=== PATIENT | male | born 1955 | race Caucasian/White ===

== ENCOUNTER 2021-02-22 19:39 | Inpatient (IN) | payer MEDICARE, OTHER ==
[~2021-02-22] VITALS: Ht 185.4 cm; Wt 90.7 kg
[~2021-02-22 19:39] MED LIST: ADVAIR 250-501 EACH INH; AMBIEN5 MG PO; ARICEPT5 MG PO; BENZTROPINE ME0.5 MG PO; CARVEDILOL3.125 MG PO; CLONAZEPAM1 MG PO; DEPAKOTE ER250 MG PO; DOXEPIN HCL150 MG PO; ENALAPRIL MALEA20 MG PO; FLOMAX0.4 MG PO; LASIX40 MG PO; LEVOTHYROXINE175 MCG PO; LITHIUM CARBON300 MG PO; LORATADINE10 MG PO; MOTRIN200 MG PO; NICOTINE PATCH1 EAC1 TOP; OLANZAPINE10 MG PO; PRAVASTATIN SOD40 MG PO; PRILOSEC40 MG PO; PROAIR HFA INH8.5 GM INH; QUETIAPINE FUMA25 MG PO; SPIRIVA18 MCG INH; TRICOR145 MG PO
[2021-02-22] MEDS ORDERED: SODIUM CHLORIDE 0.9% 1000ML 1,000 ML IV STA ×2 (19:52→20:41)
[2021-02-22] MEDS ORDERED: Vancomycin IV 1 GM in SODIUM CHLORIDE 0.9% 250ML 250 ML IV STA (19:52)
[2021-02-22] MEDS ORDERED: PIPERACILLIN/TAZOBACTAM 3.375 GM in SODIUM CHLORIDE 0.9% 50ML 50 ML IV STA (19:52)
[2021-02-22] MEDS ORDERED: ACETAMINOPHEN 325 MG TAB ONE (19:58)
[2021-02-22] MEDS ORDERED: SODIUM CHLORIDE 0.9% 1000ML 1,000 ML ONE (19:59)
[2021-02-22] MEDS ORDERED: ACETAMINOPHEN 325 MG TAB PO ONE (20:00)
[2021-02-22 20:01] LABS: BASOPHILS # (AUTO) 0.1 (0.0-0.1); BASOPHILS % 0.3 % (0.0-1.0); EOSINOPHILS # (AUTO) 0.2 (0.0-0.4); EOSINOPHILS % 1.1 % (0.0-6.0); HEMATOCRIT 45.1 % (38.2-49.6); HEMOGLOBIN 14.5 g/dL (14.0-18.0); LYMPHOCYTES # (AUTO) 2.5 (1.0-3.2); LYMPHOCYTES % 13.7 % (18.0-39.1); MEAN CORPUSCULAR HEMOGLOBIN 33.9 pg (28-32); MEAN CORPUSCULAR HGB CONC 32.2 g/dL (31-35); MEAN CORPUSCULAR VOLUME 105.4 fL (81-99); MONOCYTES # (AUTO) 1.5 (0.2-0.8); MONOCYTES % 8.2 % (4.4-11.3); NEUTROPHILS # (AUTO) 14.1 (2.1-6.9); NEUTROPHILS % 76.2 % (38.7-80.0); PLATELET COUNT 183 x10e3/uL (140-360); RED BLOOD COUNT 4.28 x10e6/uL (4.3-5.7); RED CELL DISTRIBUTION WIDTH 13.8 % (11.7-14.4)
[2021-02-22 20:21] LABS: ALBUMIN 3.7 g/dL (3.5-5.0); ALBUMIN/GLOBULIN RATIO 1.2 (0.8-2.0); ANION GAP 16.4 mmol/L (8-16); CALCIUM 9.1 mg/dL (8.4-10.2); CREATININE, SERUM 1.15 mg/dL (0.72-1.25); POTASSIUM 4.4 mmol/L (3.5-5.1)
[2021-02-22] MEDS ORDERED: ALBUTEROL/IPRATROPIUM 3 ML NEB NEB ONE (21:00)
[2021-02-22 21:03] LABS: CLARITY,URINE CLEAR (CLEAR); COLOR,URINE YELLOW (YELLOW); KETONES,URINE NEGATIVE (NEGATIVE); LEUKOCYTE ESTERASE ,URINE NEGATIVE (NEGATIVE); NITRITE,URINE NEGATIVE (NEGATIVE); PROTEIN,URINE DIPSTICK NEGATIVE (NEGATIVE); URINE UROBILINOGEN 0.2 mg/dL (0.2 - 1)
[2021-02-22 21:08] LABS: BACTERIA,URINE RARE /HPF; EPITHELIAL CELLS,URINE FEW /LPF; MUCUS,URINE FEW (RARE); RBC,URINE 0-5 /HPF (0-5); WBC,URINE (MAN) 0-5 /HPF (0-5)
[2021-02-22 21:20] LABS: PLATELET ESTIMATE ADEQUATE; PLATELET MORPHOLOGY COMMENT NORMAL; STOMATOCYTES SLIGHT
[2021-02-22] MEDS ORDERED: SODIUM CHLORIDE 0.9% 1000ML 1,000 ML IV SCH (21:30)
[2021-02-22 21:51] VITALS: BP 104/87
[2021-02-22] MEDS ORDERED: HYDROCODON-ACE1 EAC8 (23:46)
[2021-02-23] VITALS (8 sets, daily range): BP systolic 101–130; BP diastolic 57–91
[2021-02-23] MEDS: HYDROCODONE/APAP 5MG-325MG TAB PO PRN ×4 (00:45→22:02)
[2021-02-23] MEDS: ZOLPIDEM TARTRATE 5 MG TAB PO PRN ×2 (00:45→22:00)
[2021-02-23] MEDS: SODIUM CHLORIDE 0.9% 1000ML 1,000 ML IV SCH ×3 (01:49→13:30)
[2021-02-23] MEDS: LEVALBUTEROL HCL SOLN NEBU 1.25 MG/3 ML NEB INH SCH ×2 (02:15→07:00)
[2021-02-23] MEDS ORDERED: GUAIFENESIN/DEXTROMETHORPHAN LIQD 5 ML UDC NG PRN (06:45)
[2021-02-23] MEDS ORDERED: ALBUTEROL/IPRATROPIUM 3 ML NEB NEB PRN (07:00)
[2021-02-23 07:19] LABS: BASOPHILS % 0.2 % (0.0-1.0); HEMATOCRIT 40.5 % (38.2-49.6); HEMOGLOBIN 13.1 g/dL (14.0-18.0); LYMPHOCYTES # (AUTO) 0.6 (1.0-3.2); LYMPHOCYTES % 5.4 % (18.0-39.1); MEAN CORPUSCULAR HEMOGLOBIN 33.6 pg (28-32); MEAN CORPUSCULAR HGB CONC 32.3 g/dL (31-35); MEAN CORPUSCULAR VOLUME 103.8 fL (81-99); MONOCYTES # (AUTO) 0.3 (0.2-0.8); MONOCYTES % 2.2 % (4.4-11.3); NEUTROPHILS # (AUTO) 10.4 (2.1-6.9); NEUTROPHILS % 91.8 % (38.7-80.0); PLATELET COUNT 159 x10e3/uL (140-360); RED CELL DISTRIBUTION WIDTH 13.6 % (11.7-14.4)
[2021-02-23 07:38] LABS: CALCIUM 8.4 mg/dL (8.4-10.2); CREATININE, SERUM 0.96 mg/dL (0.72-1.25)
[2021-02-23 07:43] LABS: CREATINE KINASE MB 5.4 ng/mL (0-5.0)
[2021-02-23 08:08] LABS: ALBUMIN 3.1 g/dL (3.5-5.0); BILIRUBIN,DIRECT 0.2 mg/dL (0.0-0.5)
[2021-02-23] MEDS: CARVEDILOL 3.125 MG TAB PO SCH ×2 (08:11→15:55)
[2021-02-23] MEDS: DIVALPROEX SODIUM 250 MG TAB...DR PO SCH ×2 (08:12→15:55)
[2021-02-23] MEDS: CLONAZEPAM 1 MG TAB PO SCH ×2 (08:12→17:51)
[2021-02-23] MEDS: PIPERACILLIN/TAZOBACTAM 3.375 GM in SODIUM CHLORIDE 0.9% 50ML 50 ML IV SCH ×3 (08:12→20:00)
[2021-02-23] MEDS: PANTOPRAZOLE SOD 40 MG TABEC PO SCH (08:13)
[2021-02-23] MEDS: BENZONATATE 100 MG CAP PO SCH ×3 (08:13→21:39)
[2021-02-23] MEDS ORDERED: METHYLPREDNISOLONE SOD SUCC 40 MG/ML VIAL 1ML IV SCH (09:30)
[2021-02-23] MEDS: TAMSULOSIN HCL 0.4 MG CAP PO SCH (09:31)
[2021-02-23] MEDS: LEVOTHYROXINE SODIUM 75 MCG TAB PO SCH (09:31)
[2021-02-23] MEDS: LORATADINE 10 MG TAB PO SCH (09:31)
[2021-02-23] MEDS: LEVOTHYROXINE SODIUM 100 MCG TAB PO SCH (09:31)
[2021-02-23] MEDS: FENOFIBRATE 145 MG TAB PO SCH (09:31)
[2021-02-23] MEDS ORDERED: AZITHROMYCIN 250 MG TAB PO STA (10:03)
[2021-02-23] MEDS: LITHIUM CARBONATE ER 300 MG TAB PO SCH ×2 (11:00→15:55)
[2021-02-23] MEDS: ALBUTEROL/IPRATROPIUM 3 ML NEB NEB SCH ×4 (11:28→22:05)
[2021-02-23] MEDS: NICOTINE 7 MG PATCH TOP SCH (11:32)
[2021-02-23] MEDS: DOXYCYCLINE HYCLATE TABLET 100 MG TAB PO SCH ×2 (11:36→21:39)
[2021-02-23] MEDS ORDERED: QUETIAPINE FUMARATE 25 MG TAB PO SCH (21:00)
[2021-02-23] MEDS ORDERED: SIMVASTATIN 20 MG TAB PO SCH (21:00)
[2021-02-23] MEDS: METHYLPREDNISOLONE SOD SUCC 40 MG/ML VIAL 1ML IV SCH (21:39)
[2021-02-23] MEDS: HEPARIN SOD (PORCINE) 5,000 UNIT/ML VIAL SC SCH (21:40)
[2021-02-24] VITALS: BP 118/69
[2021-02-24] MEDS: ALBUTEROL/IPRATROPIUM 3 ML NEB NEB SCH ×5 (01:45→18:50)
[2021-02-24] MEDS: SODIUM CHLORIDE 0.9% 1000ML 1,000 ML IV SCH ×2 (01:47→15:00)
[2021-02-24] MEDS: PIPERACILLIN/TAZOBACTAM 3.375 GM in SODIUM CHLORIDE 0.9% 50ML 50 ML IV SCH ×3 (02:00→12:27)
[2021-02-24 04:00] VITALS: BP 129/76
[2021-02-24] MEDS: HYDROCODONE/APAP 5MG-325MG TAB PO PRN ×3 (05:04→17:20)
[2021-02-24 05:47] LABS: CHOL/HDL RATIO 3.1 (3.9-4.7)
[2021-02-24] MEDS: LEVOTHYROXINE SODIUM 100 MCG TAB PO SCH (06:08)
[2021-02-24] MEDS: LEVOTHYROXINE SODIUM 75 MCG TAB PO SCH (06:08)
[2021-02-24 06:25] LABS: FREE THYROXINE INDEX 2.1706 (1.4-3.8); THYROID STIMULATING HORMONE 0.073 uIU/mL (0.350-4.940)
[2021-02-24 07:54] VITALS: BP 132/90
[2021-02-24 08:10] VITALS: BP 132/90
[2021-02-24] MEDS: BENZONATATE 100 MG CAP PO SCH ×2 (08:16→16:15)
[2021-02-24] MEDS: TAMSULOSIN HCL 0.4 MG CAP PO SCH (08:16)
[2021-02-24] MEDS: METHYLPREDNISOLONE SOD SUCC 40 MG/ML VIAL 1ML IV SCH (08:16)
[2021-02-24] MEDS: NICOTINE 7 MG PATCH TOP SCH (08:16)
[2021-02-24] MEDS: CLONAZEPAM 1 MG TAB PO SCH ×2 (08:16→16:15)
[2021-02-24] MEDS: FENOFIBRATE 145 MG TAB PO SCH (08:16)
[2021-02-24] MEDS: DOXYCYCLINE HYCLATE TABLET 100 MG TAB PO SCH (08:16)
[2021-02-24] MEDS: LITHIUM CARBONATE ER 300 MG TAB PO SCH ×2 (08:16→16:15)
[2021-02-24] MEDS: DIVALPROEX SODIUM 250 MG TAB...DR PO SCH ×2 (08:16→16:15)
[2021-02-24] MEDS: PANTOPRAZOLE SOD 40 MG TABEC PO SCH (08:16)
[2021-02-24] MEDS: LORATADINE 10 MG TAB PO SCH (08:16)
[2021-02-24] MEDS: CARVEDILOL 3.125 MG TAB PO SCH ×2 (08:17→16:15)
[2021-02-24] MEDS: HEPARIN SOD (PORCINE) 5,000 UNIT/ML VIAL SC SCH (08:17)
[2021-02-24] MEDS ORDERED: AZITHROMYCIN 250 MG TAB PO SCH (09:00)
[2021-02-24 10:39] LABS: BASOPHILS % 0.1 % (0.0-1.0); HEMATOCRIT 39.5 % (38.2-49.6); HEMOGLOBIN 12.3 g/dL (14.0-18.0); LYMPHOCYTES # (AUTO) 0.6 (1.0-3.2); LYMPHOCYTES % 8.2 % (18.0-39.1); MEAN CORPUSCULAR HEMOGLOBIN 33.4 pg (28-32); MEAN CORPUSCULAR HGB CONC 31.1 g/dL (31-35); MEAN CORPUSCULAR VOLUME 107.3 fL (81-99); MONOCYTES # (AUTO) 0.3 (0.2-0.8); MONOCYTES % 3.3 % (4.4-11.3); NEUTROPHILS # (AUTO) 6.6 (2.1-6.9); NEUTROPHILS % 87.9 % (38.7-80.0); PLATELET COUNT 168 x10e3/uL (140-360); RED BLOOD COUNT 3.68 x10e6/uL (4.3-5.7); RED CELL DISTRIBUTION WIDTH 13.5 % (11.7-14.4)
[2021-02-24 10:56] LABS: ANION GAP 15.5 mmol/L (8-16); CALCIUM 8.7 mg/dL (8.4-10.2); CREATININE, SERUM 1.05 mg/dL (0.72-1.25); POTASSIUM 4.5 mmol/L (3.5-5.1)
[2021-02-24 12:18] VITALS: BP 127/76
[2021-02-24] MEDS ORDERED: NICODERM CQ1 EACH TOP (14:05)
[2021-02-24] MEDS ORDERED: LORATADINE10 MG PO (14:05)
[2021-02-24] MEDS ORDERED: PREDNISONE20 MG PO (14:05)
[2021-02-24] MEDS ORDERED: ROBITUSSIN COU118 M4 PO (14:05)
[2021-02-24] MEDS ORDERED: DOXYCYCLINE HY100 MG PO (14:05)
[2021-02-24] MEDS ORDERED: TESSALON PERLE100 MG PO (14:05)
[2021-02-24] MEDS ORDERED: CEFUROXIME250 MG PO (14:08)
[2021-02-24 15:40] VITALS: BP 135/94
== END 2021-02-24 20:05 | DRG 871 ==
LOC: ER 19:42 → ERHOLD 21:18 → ER 22:03 → MED/SURG2 23:25
PROVIDERS: ADMIT Internal Medicine; ATTEND Internal Medicine
DX: A41.9 Sepsis, unspecified organism (principal); J96.21 Acute and chronic respiratory failure with hypoxia; J18.9 Pneumonia, unspecified organism; J44.0 Chronic obstructive pulmonary disease with (acute) lower respiratory infection; J44.1 Chronic obstructive pulmonary disease with (acute) exacerbation; N40.0 Benign prostatic hyperplasia without lower urinary tract symptoms; F17.200 Nicotine dependence, unspecified, uncomplicated; E03.9 Hypothyroidism, unspecified; Z20.822 Contact with and (suspected) exposure to COVID-19; Z86.74 Personal history of sudden cardiac arrest; F31.9 Bipolar disorder, unspecified; F17.210 Nicotine dependence, cigarettes, uncomplicated; Z95.810 Presence of automatic (implantable) cardiac defibrillator; I25.10 Atherosclerotic heart disease of native coronary artery without angina pectoris; I11.0 Hypertensive heart disease with heart failure; I50.9 Heart failure, unspecified
CPT/HCPCS: 36415; 71045; 80048; 80053; 80061; 80076; 80178; 81001; 82550; 82553; 83605; 83880; 84436; 84443; 84479; 84484; 85025; 87040; 87086; 93005; 94640; 94799; 97139; 99284; J1644; J2543; J2920; J3370; J7030; J7050; U0002